=== PATIENT | male | born 1950 | race Native Hawaiian/Other Pacific Islander ===

== ENCOUNTER 2016-08-04 11:18 | Outpatient (CLI) | payer OTHER, MEDICARE ==
[~2016-08-04 11:18] MED LIST: AMLO2.5T PO; B-12 TR1000 MCG OR; BUPR75TA OR; GABA400C2 PO; HUMULIN N1 ML SC; PRAVACHOL80 MG PO
== END 2016-08-04 19:51 | disposition home or self-care (01) ==
LOC: RAD 11:18
DX: M25.511 Pain in right shoulder (principal)

== ENCOUNTER 2016-09-01 16:09 | Outpatient (CLI) | payer OTHER, MEDICARE | END 2016-09-01 19:47 | disposition home or self-care (01) | LOC: RAD 16:09 | DX: J20.2 Acute bronchitis due to streptococcus (principal) ==

== ENCOUNTER 2016-10-28 08:33 | Outpatient (CLI) | payer OTHER, MEDICARE | END 2016-10-28 19:11 | disposition home or self-care (01) | LOC: RESP 08:33 | DX: R06.02 Shortness of breath (principal) | CPT/HCPCS: 94640; 94664 ==

== ENCOUNTER 2016-11-23 07:50 | Outpatient (CLI) | payer OTHER, MEDICARE | END 2016-11-23 19:22 | disposition home or self-care (01) | LOC: CT 07:50 | DX: R06.09 Other forms of dyspnea (principal) | CPT/HCPCS: 36415; 82565; 84520; Q9963 ==

== ENCOUNTER 2016-12-03 08:42 | Outpatient (CLI) | payer OTHER, MEDICARE | END 2016-12-03 10:00 | disposition home or self-care (01) | LOC: RESP 08:42 | DX: R06.09 Other forms of dyspnea (principal) | CPT/HCPCS: 93306 ==

== ENCOUNTER 2017-04-10 08:54 | Outpatient (CLI) | payer OTHER, MEDICARE ==
[~2017-04-10 08:54] MED LIST changes: +GLIP10TA55 PO; +INSUINJ32 SC; +LORADAMED10 MG PO; +METF100038 PO
[2017-04-10 09:21] LABS: PLATELET COUNT 234 K/uL (142-355)
[2017-04-10 09:33] LABS: POTASSIUM 4.1 mmol/L (3.6-5.2); SODIUM 132 mmol/L (136-145)
== END 2017-04-10 09:55 | disposition home or self-care (01) ==
LOC: LABW 08:54
PROVIDERS: Nurse Practitioner Adult Health
DX: R07.2 Precordial pain (principal); Z01.810 Encounter for preprocedural cardiovascular examination; R93.1 Abnormal findings on diagnostic imaging of heart and coronary circulation; R35.8 Other polyuria
CPT/HCPCS: 36415; 80053; 85027

== ENCOUNTER 2017-04-19 12:58 | Outpatient (CLI) | payer OTHER, MEDICARE ==
[2017-04-19 13:51] LABS: POTASSIUM 4.2 mmol/L (3.6-5.2); SODIUM 130 mmol/L (136-145)
== END 2017-04-19 14:00 | disposition home or self-care (01) ==
LOC: LABW 12:58
PROVIDERS: Nurse Practitioner Adult Health
DX: R35.8 Other polyuria (principal)
CPT/HCPCS: 36415; 80048

== ENCOUNTER 2017-06-07 14:31 | Outpatient (CLI) | payer OTHER, MEDICARE | END 2017-06-07 15:35 | disposition home or self-care (01) | LOC: LABW 14:31 | DX: R79.89 Other specified abnormal findings of blood chemistry (principal) | CPT/HCPCS: 36415; 82247; 82390; 82728; 83516; 83540; 83550; 84450; 84460; 86039; 86225; 86235 ==

== ENCOUNTER 2017-06-28 12:49 | Outpatient (CLI) | payer OTHER, MEDICARE | END 2017-06-28 18:57 | disposition home or self-care (01) | LOC: RAD 12:49 | DX: M25.511 Pain in right shoulder (principal) ==

== ENCOUNTER 2017-12-06 09:06 | Outpatient (CLI) | payer OTHER, MEDICARE | END 2017-12-06 18:52 | disposition home or self-care (01) | LOC: RAD 09:06 | DX: M25.561 Pain in right knee (principal); M25.562 Pain in left knee ==

== ENCOUNTER 2018-01-20 11:13 | Outpatient (CLI) | payer OTHER, MEDICARE | END 2018-01-20 20:43 | disposition home or self-care (01) | LOC: RAD 11:13 | DX: M06.4 Inflammatory polyarthropathy (principal) ==

== ENCOUNTER 2018-03-24 12:11 | Outpatient (CLI) | payer OTHER, MEDICARE | END 2018-03-24 19:32 | disposition home or self-care (01) | LOC: CT 12:11 | DX: R91.1 Solitary pulmonary nodule (principal) ==

== ENCOUNTER 2018-05-16 09:36 | Outpatient (CLI) | payer OTHER, MEDICARE | END 2018-05-16 19:16 | disposition home or self-care (01) | LOC: CT 09:36 | DX: R91.1 Solitary pulmonary nodule (principal) ==

== ENCOUNTER 2018-12-13 16:21 | Outpatient (CLI) | payer OTHER, MEDICARE | END 2018-12-13 21:19 | disposition home or self-care (01) | LOC: RAD 16:21 | DX: J20.2 Acute bronchitis due to streptococcus (principal) ==

== ENCOUNTER 2019-01-09 10:46 | Outpatient (CLI) | payer OTHER, MEDICARE | END 2019-01-09 19:18 | disposition home or self-care (01) | LOC: RESP 10:46 | DX: J18.9 Pneumonia, unspecified organism (principal) ==

== ENCOUNTER 2019-02-14 13:08 | Outpatient (CLI) | payer OTHER, MEDICARE | END 2019-02-14 23:29 | disposition home or self-care (01) | LOC: CT 13:08 | DX: R91.1 Solitary pulmonary nodule (principal) ==

== ENCOUNTER 2020-03-13 09:16 | Outpatient (CLI) | payer OTHER, MEDICARE | END 2020-03-13 19:45 | disposition home or self-care (01) | LOC: US 09:16 | DX: F45.8 Other somatoform disorders (principal) ==

== ENCOUNTER 2020-05-02 12:58 | Outpatient (CLI) | payer OTHER, MEDICARE ==
[2020-05-02 13:51] LABS: PLATELET COUNT 235 K/uL (142-355)
[2020-05-02 14:14] LABS: POTASSIUM 3.9 mmol/L (3.6-5.2)
[2020-05-02 14:15] LABS: PARTIAL THROMBOPLASTIN TIME 28.9 SECONDS (24.5-33.6)
== END 2020-05-02 20:09 | disposition home or self-care (01) ==
LOC: LAB 12:58
PROVIDERS: Podiatrist
DX: Z01.810 Encounter for preprocedural cardiovascular examination (principal); Z01.811 Encounter for preprocedural respiratory examination; Z01.812 Encounter for preprocedural laboratory examination; Z51.81 Encounter for therapeutic drug level monitoring; E11.41 Type 2 diabetes mellitus with diabetic mononeuropathy
CPT/HCPCS: 36415; 80053; 83036; 85002; 85027; 85610; 85730; 93005

== ENCOUNTER 2020-10-12 14:45 | Outpatient (CLI) | payer OTHER, MEDICARE | END 2020-10-12 19:00 | disposition home or self-care (01) | LOC: LAB 14:45 | PROVIDERS: ATTEND Family Medicine | DX: R19.7 Diarrhea, unspecified (principal) | CPT/HCPCS: 83630; 87015; 87045; 87324; 87328; 87329; 87449; 87899 ==

== ENCOUNTER 2021-02-25 16:46 | Outpatient (CLI) | payer OTHER, MEDICARE | END 2021-02-25 20:42 | disposition home or self-care (01) | LOC: RAD 16:46 | PROVIDERS: ATTEND Nurse Practitioner Family | DX: J20.2 Acute bronchitis due to streptococcus (principal) ==

== ENCOUNTER 2021-05-31 12:20 | Emergency (ER) | payer OTHER, MEDICARE ==
[~2021-05-31] VITALS: Ht 190.5 cm; Wt 136.1 kg
[2021-05-31 12:25] VITALS: TEMP 97.6
[2021-05-31 13:24] LABS: POTASSIUM 3.9 mmol/L (3.6-5.2)
[2021-05-31 13:30] LABS: PARTIAL THROMBOPLASTIN TIME 26.3 SECONDS (24.5-33.6); PLATELET COUNT 240 K/uL (142-355)
[2021-05-31 14:54] VITALS: BP 151/97
== END 2021-05-31 15:39 | disposition short-term general hospital (02) ==
LOC: ED 12:20
PROVIDERS: Emergency Medicine
DX: I63.89 Other cerebral infarction (principal); Z86.73 Personal history of transient ischemic attack (TIA), and cerebral infarction without residual deficits; E11.9 Type 2 diabetes mellitus without complications; Z79.4 Long term (current) use of insulin; I10 Essential (primary) hypertension; E78.49 Other hyperlipidemia; E66.8 Other obesity; Z11.52 Encounter for screening for COVID-19
CPT/HCPCS: 80053; 84484; 85027; 85610; 85730; 87635; 93005; 99284; U0003

== ENCOUNTER 2021-07-08 12:07 | Outpatient (CLI) | payer OTHER, MEDICARE | END 2021-07-08 19:04 | disposition home or self-care (01) | LOC: RAD 12:07 | PROVIDERS: ATTEND Nurse Practitioner Primary Care | DX: Z20.822 Contact with and (suspected) exposure to COVID-19 (principal) ==

== ENCOUNTER 2021-09-30 10:31 | Outpatient (CLI) | payer OTHER, MEDICARE | END 2021-09-30 19:05 | disposition home or self-care (01) | LOC: US 10:31 | PROVIDERS: ATTEND Nurse Practitioner Family | DX: R60.0 Localized edema (principal) ==

== ENCOUNTER 2022-02-09 16:57 | Outpatient (CLI) | payer OTHER, MEDICARE | END 2022-02-09 19:05 | disposition home or self-care (01) | LOC: RAD 16:57 | PROVIDERS: ATTEND Nurse Practitioner Family | DX: M26.621 Arthralgia of right temporomandibular joint (principal) | CPT/HCPCS: 70328 ==

== ENCOUNTER 2022-02-18 13:08 | Observation (INO) | payer OTHER, MEDICARE ==
[~2022-02-18] VITALS: Ht 190.5 cm; Wt 144.4 kg
[~2022-02-18 13:08] MED LIST changes: +GABA300C2 PO
[2022-02-18 13:59] LABS: PLATELET COUNT 214 K/uL (142-355)
[2022-02-18 14:07] VITALS: BP 168/78; TEMP 97.9; Ht 190.5 cm; Wt 144.4 kg
--- NOTE | 2022-02-18 14:08 | NUR ---
PATIENT ARRIVED TO MED SURG FLOOR ROOM 1110 VIA WHEELCHAIR A DIRECT ADMIT FROM 'S OFFICE. PATIENT VERBALIZES SORENESS/PAIN IN RIGHT SCAPULAR AND STIFFNESS IN BACK. OBTAINED IV ACCESS IN PATIENT'S LEFT AC WITH A 22G 1X ATTEMPT BY JASKARAN HURTADO LPN. FIRST HELPER PLACED ON PATIENT. VITALS OBTAINED, CALL LIGHT WITHIN REACH, AND BED LOCKED IN LOWEST POSITION. WILL CONTINUE TO MONITOR. PATIENT'S ARRIVAL TIME TO FLOOR 13:28.
[2022-02-18 14:27] LABS: PARTIAL THROMBOPLASTIN TIME 27.9 SECONDS (24.5-33.6)
--- NOTE | 2022-02-18 14:57 | NUR ---
PATIENT WAS GIVEN 650MG TYLENOL FOR COMPLAINT OF RIGHT SHOULDER PAIN RATING CURRENTLY AT A 10. PATIENT DENIES HAVING ANY CURRENT CHEST PAIN OR HEART PROBLEMS AND REFUSED THE NITRO PASTE. WILL CONTINUE TO MONITOR AND REASSESS.
--- NOTE | 2022-02-18 15:30 | NUR ---
PATIENT VERBALIZES NO PAIN RELIEF FROM THE PO TYLENOL. STILL RATES PAIN AT A 10. WILL HAVE CHARGE NURSE, MEGHAN, TO CONTACT DR. TUCKER FOR A MORE EFFECTIVE PAIN MEDICATION.
--- NOTE | 2022-02-18 15:50 | NUR ---
RECEIVED PATIENT'S HOME MED LIST FROM [facility]. PATIENT STATES HE NO LONGER TAKES SOME OF THOSE MEDS DUE TO DOCTOR STATING COUNTERACTION WITH A COUPLE OF THEM. PATIENT STATED THAT HIS GRANDSON WILL BE BRINGING HIS MEDICATION BOTTLES UP THERE OF WHAT HE IS CURRENTLY TAKING LATER THIS AFTERNOON.
[2022-02-18 16:00] VITALS: BP 126/89; TEMP 97.9
--- NOTE | 2022-02-18 16:24 | NUR ---
1613- PATIENT REQUESTED PAIN MEDICATION. NOTIFIED AND A ONE TIME ORDER FOR TORADOL 30 MG X1 DOSE IV NOW PLACED AT THIS TIME. REQUESTED INFORMATION REGARDING PATIENT HAVING ONE UNIT OF BLOOD REMOVED VIA TRANSFUSION. PER JAMAL IN LAB WE NO LONGER DO THERAPEUTIC PHLEBOTOMY. DR. TUCKER NOTIFIED.
--- NOTE | 2022-02-18 16:41 | NUR ---
GAVE ORDERS FOR PATIENT TO HAVE ONE TIME ORDER OF SOLUMEDROL 125 MG IV THEN SOLUMEDROL 80 MG IV Q8HRS, NS AT 100 ML/HR CONTINUOUS AND LABS IN THE AM- CMP,CBC, MAG, PHOS,TSH AND FASTING LIPID PANEL. ORDERS PLACED AT THIS TIME.
--- NOTE | 2022-02-18 16:54 | NUR ---
16:45 PATIENT WAS GIVEN IV PUSH KETOROLAC 30MG 1X DOSE FOR CONTINUED PAIN IN RIGHT SHOULDER. WILL REASSESS AND MONITOR.
--- NOTE | 2022-02-18 17:27 | NUR ---
17:15 PATIENT VERBALIZES SOME RELIEVE OF PAIN IN RIGHT SHOULDER. NOW RATES PAIN AT A 7 OUT OF 10. WILL CONTINUE TO MONITOR.
--- NOTE | 2022-02-18 19:48 | NUR ---
PT AWAKE, ALERT, AND ORIENTED SITTING UP IN BED WITH NO S/S OF ACUTE DISTRESS OR PAIN NOTED. PT DENIES ANY PAIN OR PROBLEMS STATES THAT THE TORADOL GIVEN IV HAS HELPED HIS RIGHT SHOULDER PAIN ALOT(PAIN IS LIKE A 2 PT STATES). SKIN WARM AND DRY, RADIAL PULSES INTACT/EQUAL, BS+, LUNGS CLEAR, IV INTACT TO L AC WITH NS INFUSING AT 100ML/HR, RESP RATE NONLABORED, TELEMETRY IN USE WITH SR NOTED REGULAR RATE. PT TALKATIVE WITH OUTSIDE MEDICAL SALES REPRESENTATIVE. WILL MONITOR CLOSELY, RAILS UP, BED IN LOW POSITION, CALL LIGHT IN REACH, ENCOURAGED TO CALL NEEDED.
[2022-02-18 20:00] VITALS: BP 154/77; TEMP 98.5
--- NOTE | 2022-02-18 21:50 | NUR ---
HOME MEDICATION LIST SENT TO DR. TUCKER, NEW TELEPHONE ORDER TO START PT'S HOME MEDICATIONS.
--- NOTE | 2022-02-18 23:05 | NUR ---
PT FOUND AWAKE SITTING UP IN BED TALKING ON THE PHONE, NO S/S OF PAIN OR DISTRESS NOTED, RESP RATE NONLABORED, TELEMETRY IN USE, IV INTACT TO L AC WITH NS INFUSING AT 100ML/HR, DENIES ANY PAIN OR PROBLEMS AT THIS TIME. GAVE NIGHTLY MEDICATIONS AT THIS TIME. WILL MONITOR CLOSELY, RAILS UP, BED IN LOW POSITION, CALL LIGHT IN REACH, ENCOURAGED TO CALL NEEDED.
[2022-02-19] VITALS: BP 147/82; TEMP 98.2
[2022-02-19] MEDS ORDERED: LANTUS100 UNIT/M SC (00:06)
[2022-02-19] MEDS ORDERED: JARDIANCE25 MG PO (00:08)
[2022-02-19] MEDS ORDERED: CLOPIDOGREL75 MG PO (00:09)
[2022-02-19] MEDS ORDERED: B121000 MCG PO (00:09)
[2022-02-19] MEDS ORDERED: ASCORBIC ACD1000 MG PO (00:10)
[2022-02-19] MEDS ORDERED: NOVOLOG100 UNIT/M SC (00:11)
[2022-02-19] MEDS ORDERED: AMLODIPINE PO (00:13)
[2022-02-19] MEDS ORDERED: VITAMIN D2000 UNIT PO (00:14)
[2022-02-19] MEDS ORDERED: PRAVASTATIN PO (00:16)
[2022-02-19] MEDS ORDERED: KRILL PO (00:17)
[2022-02-19] MEDS ORDERED: FISH OI PO (00:17)
[2022-02-19] MEDS ORDERED: ASPIRIN81 M1 PO (00:18)
--- NOTE | 2022-02-19 01:58 | NUR ---
PT FOUND RESTING IN BED WITH EYES CLOSED, NO S/S OF PAIN OR DISTRESS NOTED, RESP RATE NONLABORED, TELEMETRY IN USE, IV INTACT WITH FLUID ONGOING. WILL MONITOR CLOSELY, RAILS UP, CALL LIGHT IN REACH, BED IN LOW POSITION.
--- NOTE | 2022-02-19 02:55 | NUR ---
PT RESTING WITH EYES CLOSED, AROUSES TO RETIREMENT MANAGER ENTERING ROOM AND IS ALERT/ORIENTED. DENIES ANY PAIN OR PROBLEMS AT THIS TIME, NO S/S OF DISTRESS NOTED, RESP RATE NONLABORED, HOME CPAP IN USE, IV INTACT WITH FLUID ONGOING, TELEMETRY IN USE WITH NSR NOTED IN 60s, WILL MONITOR CLOSELY, RAILS UP, BED IN LOW POSITION, CALL LIGHT IN REACH, ENCOURAGED TO CALL NEEDED.
[2022-02-19 04:00] VITALS: BP 142/85; TEMP 98.3
--- NOTE | 2022-02-19 05:25 | NUR ---
PT AROUSES TO FLOOR SPACE ALLOCATOR ENTERING ROOM, IS NOW ALERT AND ORIENTED TALKATIVE WITH FLOOR SPACE ALLOCATOR. DENIES ANY PAIN OR PROBLEMS AND STATES HE FEELS SO MUCH BETTER SINCE HE GOT MEDICATIONS YESTERDAY AFTER HE WAS ADMITTED AND EVEN WAS ABLE TO SLEEP ON HIS RIGHT SIDE WHICH HE HAS NO BEEN ABLE TO DUE LATELY. RESP RATE NONLABORED, TELEMETRY IN USE, IV INTACT WITH NS INFUSING PER ORDER, NO S/S OF PAIN OR DISTRESS NOTED, PT HAS DENIED ANY CHEST PAIN DURING SHIFT. WILL MONITOR, RAILS UP, BED IN LOW POSITION, CALL LIGHT IN REACH, ENCOURAGED TO CALL NEEDED PT ACKNOWLEDGES UNDERSTANDING.
[2022-02-19 05:32] LABS: PLATELET COUNT 194 K/uL (142-355)
[2022-02-19 05:48] LABS: POTASSIUM 4.6 mmol/L (3.6-5.2)
--- NOTE | 2022-02-19 07:44 | NUR ---
PATIENT UP SITTING ON THE SIDE OF THE BED THIS MORNING EATING BREAKFAST. PATIENT VERBALIZES MUCH RELIEVE FROM PAIN IN RIGHT SHOULDER SINCE YESTERDAY. IV SITE STILL INTACT. ALONG WITH METAL REFINER. PATIENT VERBALIZES NO OTHER COMPLAITS OF PAIN OR DISCOMFORT. WILL CONTINUE TO MONITOR.
[2022-02-19 07:58] VITALS: BP 140/74; TEMP 97.5
--- NOTE | 2022-02-19 08:14 | NUR ---
PATIENT REFUSED NITRO PASTE, DENIES HAVING ANY CHEST PAIN.
--- NOTE | 2022-02-19 08:48 | NUR ---
Send labs for this morning. Updated her on how patient was feeling regarding pain to this right shoulder- per nightshift this morning patient stated " I feel better this morning, the pain is more like a bruise now". Night staff stated " patient was able to tolerate sleeping on his right side last night after receiving Toradol 30 mg Iv dose". New orders were given to sechedule patient for outpatient stress test and to make a f/u appointment with DOCs - office. Order given to add CRP to labs from yesterday blood draw.
--- NOTE | 2022-02-19 10:04 | NUR ---
PATIENT RESTING, LAYING IN BED. ALERT AND RESPONDSIVE TO VERBAL COMMANDS. PATIENT DENIES ANY COMPLAINTS OF PAIN OR DISCOMFORT AT THIS TIME. PATIENT DISPLAYS NO S/S OF DISTRESS. WILL CONTINUE TO MONITOR.
[2022-02-19 12:16] VITALS: BP 156/75; TEMP 97.9
--- NOTE | 2022-02-19 15:30 | NUR ---
PATIENT CURRENTLY SLEEPING WITH HOME CIPAP MACHINE ON. PATIENT DISPLAYS NO S/S OF DISTRESS. IV SITE/AIRPORT GUIDE STILL INTACT. WILL CONTINUE TO MONITOR FOR ANY CHANGES.
[2022-02-19 16:10] VITALS: BP 170/74; TEMP 98.2
--- NOTE | 2022-02-19 16:15 | NUR ---
PATIENT UP SITTING ON THE SIDE OF THE BED, EATING SUPPER. VERBALIZES NO COMPLAITS OF PAIN. NOTED NO S/S OF DISTRESS. WILL CONTINUE TO MONITOR.
--- NOTE | 2022-02-19 18:44 | NUR ---
CALLED IN PATIENT'S MEDS TO [facility] [place] PER DR. TUCKER ORDERS FOR TRAMADOL 1 TAB Q8H PRN FOR 16 TABS WITH 0 REFILLS AND MDEROL DOSE PATCH TO TAKE NEEDED. SPOKE WITH PHARMACY ANDREY BOO.
--- NOTE | 2022-02-19 19:12 | NUR ---
PROVIDED PATIENT WITH DISCGARGED INSTRUCTIONS, DISCUSSED AND EXPLAINED NEW MEDS PRESCRIBED. PATIENT VERBALIZED UNDERSTANDING. IV CATHATER WAS REMOVED, NOTED NO S/S OF INFILTRATION. PATIENT DENIES ANY PAIN AND DISCOMFORT. NOTED NO S/S OF DISTRESS. COMPLETED SURVEY. PATIENT CURRENTLY WAITING ON RIDE.
--- NOTE | 2022-02-19 19:20 | NUR ---
PT D/C AT THIS TIME, TAKEN OUT TO PRIVATE VEHICLE VIA WHEELCHAIR, NO S/S OF DISTRESS NOTED, PT STABLE UPON D/C.
--- NOTE | 2022-02-23 10:21 | NUR ---
Attempting follow up call with patient. Unable to leave a message as mailbox is full and unable to receive messages at this time.
--- NOTE | 2022-02-24 13:32 | NUR ---
Tab Cutting Machine Operator spoke with patient to follow up after discharge and he said that he was doing good. He said he got here sick and staff jumped on his care and got him better. He had just returned from his follow up appointment with his pcp he said that pcp said he was doing good. He said that staff was very friendly and helpful.
== END 2022-02-19 19:20 | disposition home or self-care (01) ==
LOC: MED/SURG 13:08
PROVIDERS: ADMIT Family Medicine; ATTEND Family Medicine
DX: R07.89 Other chest pain (principal); M25.511 Pain in right shoulder; I10 Essential (primary) hypertension; D69.6 Thrombocytopenia, unspecified; E66.01 Morbid (severe) obesity due to excess calories; G47.39 Other sleep apnea; M13.88 Other specified arthritis, other site; E13.65 Other specified diabetes mellitus with hyperglycemia
CPT/HCPCS: 36415; 80053; 80061; 82550; 82948; 83735; 84100; 84443; 84484; 85027; 85610; 85730; 86140; 87635; 93005; 96360; 96361; 96367; 96372; 96374; 96375; 99220; G0378; G0379; J1650; J1815; J1885; J2930; U0003

== ENCOUNTER 2022-03-01 21:27 | Emergency (ER) | payer OTHER, MEDICARE ==
[~2022-03-01] VITALS: Ht 190.5 cm; Wt 140.6 kg
[~2022-03-01 21:27] MED LIST changes: +AMLODIPINE PO; +ASCORBIC ACD1000 MG PO; +ASPIRIN81 M1 PO; +B121000 MCG PO; +CLOPIDOGREL75 MG PO; +FISH OI PO; +JARDIANCE25 MG PO; +KRILL PO; +LANTUS100 UNIT/M SC; +NOVOLOG100 UNIT/M SC; +PRAVASTATIN PO; +VITAMIN D2000 UNIT PO
[2022-03-01 21:30] VITALS: TEMP 98.1
[2022-03-01 21:50] LABS: PLATELET COUNT 196 K/uL (142-355)
[2022-03-01 22:33] LABS: PARTIAL THROMBOPLASTIN TIME 25.3 SECONDS (24.5-33.6)
[2022-03-02 01:52] VITALS: BP 149/65
== END 2022-03-02 02:20 | disposition short-term general hospital (02) ==
LOC: ED 21:27
PROVIDERS: Hospitalist
PROC: 0D9670Z Drainage of Stomach with Drainage Device, Via Natural or Artificial Opening (ICD-10-PCS; principal; 2022-03-01)
DX: K56.699 Other intestinal obstruction unspecified as to partial versus complete obstruction (principal); R10.84 Generalized abdominal pain; J18.8 Other pneumonia, unspecified organism; R60.0 Localized edema; F17.210 Nicotine dependence, cigarettes, uncomplicated
CPT/HCPCS: 36415; 43754; 80053; 80320; 82550; 83605; 83880; 84484; 85027; 85610; 85730; 87040; 93005; 96360; 96365; 96375; 96376; 99284; J1956; J2270; J2765; Q9963

== ENCOUNTER 2022-07-13 09:15 | Outpatient (CLI) | payer OTHER, MEDICARE | END 2022-07-13 20:20 | disposition home or self-care (01) | LOC: US 09:15 | PROVIDERS: ATTEND Nurse Practitioner Family | DX: R74.8 Abnormal levels of other serum enzymes (principal) ==

== ENCOUNTER 2023-03-08 15:59 | Outpatient (CLI) | payer OTHER, MEDICARE | END 2023-03-08 19:18 | disposition home or self-care (01) | LOC: RAD 15:59 | PROVIDERS: ATTEND Nurse Practitioner Family | DX: J20.2 Acute bronchitis due to streptococcus (principal) ==

== ENCOUNTER 2023-03-14 11:40 | Inpatient (IN) | payer OTHER, MEDICARE ==
[2023-03-14] VITALS (8 sets, daily range): BP systolic 147–177; BP diastolic 63–85; TEMP 98.1–99.5; Ht 188 cm; Wt 137.2 kg
[~2023-03-14] VITALS: Ht 188 cm; Wt 137.2 kg
[2023-03-14 12:01] LABS: PLATELET COUNT 252 K/uL (142-355)
[2023-03-14] MEDS ORDERED: PERCOCET1 TA3 PO (19:13)
[2023-03-14] MEDS ORDERED: TIZA4TAB5 PO (19:15)
[2023-03-14] MEDS ORDERED: ALBUTEROL108 MCG/AC PO (19:16)
[2023-03-14] MEDS ORDERED: PANTOPRAZOLE 40MG TA PO (19:17)
[2023-03-14] MEDS ORDERED: CIALIS2.5 MG PO (19:18)
[2023-03-14] MEDS ORDERED: AMLODIPINE BESYLATE PO (20:53)
[2023-03-14] MEDS ORDERED: PRAVASTATIN10 MG PO (20:55)
[2023-03-14] MEDS ORDERED: METHOCARBAMOL PO (20:57)
[2023-03-14] MEDS ORDERED: DOCU100C10 PO (21:07)
[2023-03-15 03:37] VITALS: BP 149/78; TEMP 99.8
[2023-03-15 04:36] LABS: PLATELET COUNT 235 K/uL (142-355)
[2023-03-15 08:00] VITALS: BP 129/81; TEMP 98.4
[2023-03-15 12:00] VITALS: BP 131/79; TEMP 98
[2023-03-15 16:26] VITALS: BP 139/85; TEMP 98.1
[2023-03-15 20:00] VITALS: BP 161/82; TEMP 98.8
[2023-03-15 23:52] VITALS: BP 150/83; TEMP 98.4
[2023-03-16 04:00] VITALS: BP 146/84; TEMP 98.5
[2023-03-16 08:00] VITALS: BP 171/85; TEMP 98.6
[2023-03-16 12:00] VITALS: BP 134/71; TEMP 98.5
[2023-03-16 16:00] VITALS: BP 155/75; TEMP 98.3
[2023-03-16 20:00] VITALS: BP 156/53; TEMP 99.6
[2023-03-16 23:37] VITALS: BP 132/67; TEMP 98.8
[2023-03-17 03:43] VITALS: BP 144/68; TEMP 98.4
[2023-03-17 08:00] VITALS: BP 149/71; TEMP 98
[2023-03-17 12:00] VITALS: BP 134/66; TEMP 98.2
== END 2023-03-17 13:55 | DRG 552 ==
LOC: ED 11:40 → MED/SURG 14:52
PROVIDERS: ADMIT Family Medicine; ATTEND Internal Medicine
DX: M54.59 Other low back pain (principal); J44.9 Chronic obstructive pulmonary disease, unspecified; R06.09 Other forms of dyspnea; F17.210 Nicotine dependence, cigarettes, uncomplicated; R63.0 Anorexia; Z98.890 Other specified postprocedural states; M19.90 Unspecified osteoarthritis, unspecified site; R53.1 Weakness
CPT/HCPCS: 36415; 36600; 80053; 81002; 82805; 83880; 84484; 85027; 93005; 94664; 94760; 96360; 96361; 96374; 96375; 99284; J1650; J2270; J2405

== ENCOUNTER 2023-09-14 12:47 | Outpatient (CLI) | payer OTHER, MEDICARE ==
[~2023-09-14 12:47] MED LIST changes: +ALBUTEROL108 MCG/AC PO; +AMLODIPINE BESYLATE PO; +CIALIS2.5 MG PO; +DOCU100C10 PO; +METHOCARBAMOL PO; +PANTOPRAZOLE 40MG TA PO; +PERCOCET1 TA3 PO; +PRAVASTATIN10 MG PO; +TIZA4TAB5 PO
== END 2023-09-14 19:09 | disposition home or self-care (01) ==
LOC: US 12:47
PROVIDERS: ATTEND Nurse Practitioner Family
DX: I73.9 Peripheral vascular disease, unspecified (principal)